=== PATIENT | male | born 1940 | race Caucasian/White ===

== ENCOUNTER 2018-09-01 10:16 | Emergency (ER) | payer OTHER ==
[2018-09-01] MEDS: KETOROLAC 30 MG INJ IM (11:36)
== END 2018-09-01 13:20 | disposition home or self-care (01) ==
LOC: FTE 10:16
DX: S83.91XA Sprain of unspecified site of right knee, initial encounter (principal); I10 Essential (primary) hypertension; W18.39XA Other fall on same level, initial encounter; Y92.9 Unspecified place or not applicable
CPT/HCPCS: 29505; 72170; 73562; 96372; 99284-25